=== PATIENT | male | born 1985 | race Caucasian/White ===

== ENCOUNTER 2021-03-31 10:24 | Emergency (ER) | payer MEDICAID ==
[2021-03-31 11:17] LABS: HEMOGLOBIN 16.1 gm/dl (14.0-17.5); RED BLOOD COUNT 5.35 M/UL (4.20-5.50); WHITE BLOOD COUNT 8.5 K/UL (4.5-11.0)
[2021-03-31 11:34] LABS: BUN/CREATININE RATIO 19 (0-10)
[2021-03-31] MEDS ORDERED: ANTIVERT50 MG PO (16:12)
[2021-03-31] MEDS ORDERED: OMEPRAZOLE20 M1 PO (16:12)
== END 2021-03-31 17:05 | disposition home or self-care (01) ==
LOC: ER1 10:24
DX: R07.89 Other chest pain (principal); R42 Dizziness and giddiness; I10 Essential (primary) hypertension; Z88.0 Allergy status to penicillin
CPT/HCPCS: 70450; 71045; 80053; 81001; 82550; 82553; 83874; 84484; 85025; 85379; 93005; 99285; J7030

== ENCOUNTER 2021-09-03 20:28 | Emergency (ER) | payer OTHER ==
[~2021-09-03 20:28] MED LIST: ANTIVERT50 MG PO; OMEPRAZOLE20 M1 PO
[2021-09-03 23:43] LABS: HEMOGLOBIN 14.9 gm/dl (14.0-17.5); RED BLOOD COUNT 5.02 M/UL (4.20-5.50); WHITE BLOOD COUNT 9.8 K/UL (4.5-11.0)
[2021-09-04 00:02] LABS: BUN/CREATININE RATIO 13 (0-10)
[2021-09-04] MEDS ORDERED: SINGULAIR10 MG PO (01:43)
== END 2021-09-04 01:45 | disposition home or self-care (01) ==
LOC: ER1 20:28
PROVIDERS: Family Medicine
DX: R07.9 Chest pain, unspecified (principal); J45.909 Unspecified asthma, uncomplicated; Z20.822 Contact with and (suspected) exposure to COVID-19
CPT/HCPCS: 0240U; 80053; 81001; 82550; 82553; 84484; 85025; 85379; 85610; 93005; 99285; Q9967

== ENCOUNTER → 2021-10-19 | Outpatient (CLI) | payer OTHER ==
[~2021-10-19] MED LIST changes: +SINGULAIR10 MG PO
== END ==
LOC: NM 12:36
DX: R10.11 Right upper quadrant pain (principal); R11.0 Nausea; R19.7 Diarrhea, unspecified
CPT/HCPCS: 78226; A9537